=== PATIENT | male | born 1990 | race Caucasian/White ===

== ENCOUNTER 2022-08-22 08:15 | Emergency (ER) | payer BC ==
[2022-08-22] MEDS ORDERED: Orphenadrine 100 MG Tab.ER PO STA (09:00)
[2022-08-22] MEDS ORDERED: Ketorolac 60 MG/2 ML SDV IM ONE (09:00)
== END 2022-08-22 10:10 | disposition home or self-care (01) ==
LOC: JD.ED 08:15
DX: M54.50 Low back pain, unspecified (principal)
CPT/HCPCS: 72100; 96372; 99283; A9270; J1885

== ENCOUNTER 2023-04-18 09:38 | Day surgery (SDC) | payer BC ==
[~2023-04-18 09:38] MED LIST: Lactated Ringers 1,000 ML IV SCH; Lidocaine 1%/Sod Bicarbonate in NS 8.4% 1 ML Syringe IDERM PRN; Sodium Chloride 0.9% 10 ML Syringe FLUSH PRN; Sodium Chloride 0.9% 10 ML Syringe FLUSH SCH
[2023-04-18] MEDS ORDERED: Lidocaine 1% 30 ML SDV ONE (11:12)
[2023-04-18] MEDS ORDERED: Propofol 200 MG/20 ML SDV ONE ×3 (11:13→12:26)
[2023-04-18] MEDS ORDERED: Lidocaine 1% 4 ML ONE (11:13)
[2023-04-18] MEDS ORDERED: Bupivacaine 0.5%/EPINEPHrine 1:200,000 50 ML MDV ONE (11:13)
[2023-04-18] MEDS ORDERED: Ketamine 500 mg/10 ML MDV ONE (11:14)
[2023-04-18] MEDS ORDERED: fentaNYL 100 MCG/2 ML SDV ONE ×2 (11:14→12:07)
[2023-04-18] MEDS ORDERED: Midazolam 1 MG/ML 2 ML SDV ONE (11:53)
[2023-04-18] MEDS ORDERED: ceFAZolin 2 GM Vial ONE (11:54)
[2023-04-18] MEDS ORDERED: Ondansetron 4 MG/2 ML SDV ONE (12:10)
[2023-04-18] MEDS ORDERED: Dexamethasone 4 MG/ML 5 ML MDV ONE (12:10)
[2023-04-18] MEDS ORDERED: Ketorolac 30 MG/ML SDV ONE (12:10)
[2023-04-18] MEDS ORDERED: Lactated Ringers 1,000 ML IV ONE (12:15)
[2023-04-18] MEDS ORDERED: Bacitracin Oint 15 GM Tube ONE (12:49)
[2023-04-18] MEDS ORDERED: Ondansetron 4 MG/2 ML SDV IVPUSH PRN (13:07)
[2023-04-18] MEDS ORDERED: fentaNYL 100 MCG/2 ML SDV IVPUSH PRN (13:07)
[2023-04-18] MEDS ORDERED: HYDROmorphone 0.5 MG/0.5 ML Syringe IVPUSH PRN (13:07)
== END 2023-04-18 14:35 | disposition home or self-care (01) ==
LOC: JD.SDS 09:38
PROVIDERS: ATTEND Surgery
DX: L05.91 Pilonidal cyst without abscess (principal); Z87.891 Personal history of nicotine dependence
CPT/HCPCS: 11771; A9270; J0690; J1100; J1885; J2250; J2405; J2704; J3010; J3490; J7120; 00300

== ENCOUNTER 2024-04-23 08:48 | Day surgery (SDC) | payer BC ==
[~2024-04-23 08:48] MED LIST changes: +Lidocaine 1% 2 ML ONE; -Lidocaine 1%/Sod Bicarbonate in NS 8.4% 1 ML Syringe IDERM PRN; +Midazolam 1 MG/ML 2 ML SDV ONE; +Propofol 200 MG/20 ML SDV ONE; +fentaNYL 100 MCG/2 ML SDV ONE
[2024-04-23] MEDS ORDERED: fentaNYL 100 MCG/2 ML SDV IVPUSH PRN (09:10)
[2024-04-23] MEDS ORDERED: Ondansetron 4 MG/2 ML SDV IVPUSH PRN (09:10)
[2024-04-23] MEDS ORDERED: HYDROmorphone 0.5 MG/0.5 ML Syringe IVPUSH PRN (09:10)
[2024-04-23] MEDS ORDERED: Rocuronium 50 MG/5 ML Vial ONE (09:14)
[2024-04-23] MEDS: EPINEPHrine 1 MG/ML SDV ONE (10:00)
[2024-04-23] MEDS: Bupivacaine 0.5% 30 ML SDV ONE (10:00)
[2024-04-23] MEDS ORDERED: Dexamethasone 4 MG/ML 5 ML MDV ONE (10:02)
[2024-04-23] MEDS ORDERED: Ketorolac 30 MG/ML SDV ONE (10:02)
[2024-04-23] MEDS ORDERED: Ondansetron 4 MG/2 ML SDV ONE (10:02)
[2024-04-23] MEDS ORDERED: Sugammadex Sodium 200 MG/2 ML VIAL IV ONE (10:09)
[2024-04-23] MEDS ORDERED: HYDROmorphone 0.5 MG/0.5 ML Syringe ONE (10:12)
== END 2024-04-23 12:05 | disposition home or self-care (01) ==
LOC: JD.SDS 08:48
PROVIDERS: ATTEND Surgery
DX: L05.91 Pilonidal cyst without abscess (principal); Z87.891 Personal history of nicotine dependence
CPT/HCPCS: 11771; J0171; J0665; J1100; J1170; J1885; J2250; J2405; J2704; J3010; J3490; J7120; 00300

== ENCOUNTER 2025-02-12 09:30 | Day surgery (SDC) | payer BC ==
[2025-02-12] MEDS ORDERED: Lactated Ringers 1,000 ML IV ONE (09:31)
[2025-02-12] MEDS ORDERED: EPINEPHrine 1 MG/ML SDV ONE (10:00)
[2025-02-12] MEDS ORDERED: Midazolam 1 MG/ML 2 ML SDV ONE (10:08)
[2025-02-12] MEDS ORDERED: fentaNYL 100 MCG/2 ML SDV ONE (10:08)
[2025-02-12] MEDS ORDERED: Propofol 200 MG/20 ML SDV ONE ×2 (10:08→11:08)
[2025-02-12] MEDS ORDERED: Ketamine 200 MG/20 ML MDV ONE (10:09)
[2025-02-12] MEDS ORDERED: dexmedeTOMIDine HCl 200 MCG/2 ML SDV ONE (10:10)
[2025-02-12] MEDS ORDERED: Ondansetron 4 MG/2 ML SDV ONE (10:14)
[2025-02-12] MEDS: Bupivacaine 0.5% 30 ML SDV ONE (11:13)
== END 2025-02-12 12:40 ==
LOC: JD.SDS 09:30
PROVIDERS: ATTEND Surgery
DX: L05.91 Pilonidal cyst without abscess (principal)
CPT/HCPCS: 11770; J0171; J0665; J2250; J2405; J2704; J3010; J3490; J7120; 00300